=== PATIENT | female | born 1955 | race Caucasian/White ===

== ENCOUNTER 2017-08-15 12:01 | Emergency (ER) | payer OTHER, SELFPAY ==
[2017-08-15 12:02] VITALS: BP 161/92; PULSE 71; RESP 16; TEMP 36.6; O2SAT 100; BMI 26.6
--- NOTE | 2017-08-15 12:28 | EKG12_ITS ---
Test Reason : HEADACHE Blood Pressure : / mmHG Vent. Rate : 067 BPM Atrial Rate : 067 BPM P-R Int : 170 ms QRS Dur : 078 ms QT Int : 412 ms P-R-T Axes : 037 041 054 degrees QTc Int : 435 ms Normal sinus rhythm Nonspecific ST abnormality Abnormal ECG Confirmed by MARI MONSALVE, HOOD ([id number]), fan mail editor JULISSA COSME ([id number]) on 08/20/2017 2:06:21 PM Referred By: KATHY Confirmed By:HOOD GUERRA MD
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
--- NOTE | 2017-08-15 12:40 | NURSING ---
NO LW OR POA
[2017-08-15 12:54] LABS: Hematocrit 42.8 % (37-47); Hemoglobin 14.2 g/dl (12.0-15.0); Mean Corp Hgb Conc 33.2 g/gl (32-36); Mean Corpuscular Hgb 29.3 pg (27.0-32.0); Mean Corpuscular Volume 88.4 fL (81-99); Mean Platelet Vol. 9.6 fl (6.2-12.0); Platelet Count 255 K/mm3 (150-450); RBC Distribution Width CV 13.1 % (11.6-14.6); RBC Distribution Width SD 41.6 fl (35.1-43.9); Red Blood Count 4.84 M/mm3 (4.2-5.4); Scan Indicated on CBC? Y/N NO; White Blood Count 6.8 K/mm3 (4.4-11.0)
[2017-08-15] MEDS: 0.9% Normal Saline 1,000 ML 999 ML IV (12:54)
[2017-08-15] MEDS: LORazepam 2 MG/ML Syringe 1 MG IV (12:55)
[2017-08-15] MEDS: Ketorolac 30 MG/ML Syringe 15 MG IV (12:55)
[2017-08-15 13:04] LABS: Anion Gap 11 (5-15); BUN 15 mg/dL (7-18); BUN/Creat Ratio 17.2 RATIO (10-20); Calcium,Total 9.6 mg/dL (8.5-10.1); Chloride 106 mmol/L (98-107); Creatinine, Serum 0.87 mg/dL (0.55-1.02); EST Glomerular Filtration Rate 70 mL/min (>60); Est Glom Filt Rate - Afr Amer 85 mL/min (>60); Estimated Creatinine Clearance 53.71 ml/min; Glucose 107 mg/dL (74-106); Potassium 3.7 mmol/L (3.5-5.1); Sodium Level 140 mmol/L (136-145)
--- NOTE | 2017-08-15 13:28 | ED.DEP ---
ED Disposition - Plan for ED Patient: Disposition: Home or Assisted Living Chief Complaint: Headache Instructions: ED Headache Tension Referrals: Bang Sheffield MD [Primary Care Provider] -
[2017-08-15 14:02] VITALS: BP 110/72; PULSE 67; RESP 17; O2SAT 95
== END 2017-08-15 14:03 | disposition home or self-care (01) ==
PROVIDERS: Emergency Provider Emergency Medicine; Family Provider Family Medicine; PCP Family Medicine
DX: F41.1 Generalized anxiety disorder (principal); F43.0 Acute stress reaction; R51 Headache; J45.909 Unspecified asthma, uncomplicated
CPT/HCPCS: 80048; 85027; 93005; 96361; 96374; 96375; 99285; J7030; A4216

== ENCOUNTER → 2017-08-20 16:00 | Outpatient (CLI) | payer OTHER, SELFPAY ==
[2017-08-20 18:12] LABS: Anion Gap 7 (5-15); BUN 15 mg/dL (7-18); BUN/Creat Ratio 18.5 RATIO (10-20); Calcium,Total 8.8 mg/dL (8.5-10.1); Chloride 107 mmol/L (98-107); Creatinine, Serum 0.81 mg/dL (0.55-1.02); EST Glomerular Filtration Rate 76 mL/min (>60); Est Glom Filt Rate - Afr Amer 92 mL/min (>60); Glucose 90 mg/dL (74-106); Sodium Level 141 mmol/L (136-145)
== END ==
PROVIDERS: Family Provider Family Medicine; PCP Family Medicine; Visit Provider Family Medicine
DX: Z01.818 Encounter for other preprocedural examination (principal)
CPT/HCPCS: 36415; 80048

== ENCOUNTER → 2017-09-10 15:39 | Outpatient (CLI) | payer OTHER, SELFPAY ==
--- NOTE | 2017-09-10 15:43 | CT_ITS ---
STUDY: CTA OF THE BRAIN REASON FOR EXAM: Female, 62 years old. Headache RADIATION DOSAGE (If Supplied By Facility): CTDIvol = ( 25.37 ) mGy, DLP = ( 1107.20 ) mGycm TECHNIQUE: CT angiography was performed with a multi-detector CT scanner. Data acquisition was obtained from the skull base through the vertex following intravenous administration of 100 ml of Isovue 370. MIP images were reconstructed from the axial data set. Post-processing of the angiographic images was performed, with multiplanar reformation and 3D reconstruction. Individualized dose optimization techniques were used for this CT. COMPARISON: None. FINDINGS: The petrous carotid arteries are normal in appearance. Normal right cavernous carotid artery with a normal supraclinoid bifurcation. Normal left cavernous carotid artery with a normal supraclinoid bifurcation. Normal right A1 segment of the anterior cerebral artery. Normal left A1 segment of the anterior cerebral artery. Normal intact anterior communicating artery (ACOM). Normal bilateral A2 segments of the anterior cerebral arteries. Normal right M1 and M2 segments of the middle cerebral arteries, with a normal M1 bifurcation. Normal left M1 and M2 segments of the middle cerebral arteries, with a normal M1 bifurcation. Normal right posterior communicating artery (PCOM). Normal left posterior communicating artery (PCOM). Normal bilateral distal vertebral arteries. Normal basilar artery with a normal basilar bifurcation. The visualized bilateral superior cerebellar (SCA) arteries are within normal limits. Normal bilateral P1, P2 and visualized P3 segments of the posterior cerebral arteries. There is no demonstrated aneurysm of the w[place]ot of [place]. There is no demonstrated abnormality or enhancement of the visualized brain. CT/CTA Head W/WO Contrast IMPRESSION: Normal intracranial arteries without a demonstrated aneurysm or hemodynamically significant stenosis. Electronically Signed: Viv Moreno MD at 18:12 EDT Tel Direct: [phone], Service support ,
== END ==
PROVIDERS: Family Provider Family Medicine; PCP Family Medicine; Visit Provider Family Medicine
DX: R51 Headache (principal)
CPT/HCPCS: 70496; Q9967

== ENCOUNTER → 2018-01-24 09:15 | Outpatient (CLI) | payer OTHER, SELFPAY ==
[2018-01-24 12:34] LABS: CPK Total, Creatine Kinase 129 U/L (26-192); Cholesterol 197 mg/dL (200); High Density Lipoprotein 87 mg/dL; Triglycerides 143 mg/dL; Very Low Density Lipoprotein 29 mg/dL (5-40)
== END ==
PROVIDERS: Family Provider Family Medicine; PCP Family Medicine; Visit Provider Family Medicine
DX: E78.5 Hyperlipidemia, unspecified (principal)
CPT/HCPCS: 36415; 80061; 82550

== ENCOUNTER → 2018-04-09 09:02 | Outpatient (CLI) | payer OTHER, SELFPAY ==
[2018-04-09 10:11] LABS: BUN 20 mg/dL (7-18); Creatinine, Serum 0.93 mg/dL (0.55-1.02); EST Glomerular Filtration Rate 65 mL/min (>60); Est Glom Filt Rate - Afr Amer 78 mL/min (>60)
== END ==
PROVIDERS: Family Provider Family Medicine; PCP Family Medicine; Referring Provider Internal Medicine Gastroenterology; Visit Provider Internal Medicine Gastroenterology
DX: Z01.818 Encounter for other preprocedural examination (principal)
CPT/HCPCS: 36415; 82565; 84520

== ENCOUNTER → 2018-12-05 10:29 | Outpatient (CLI) | payer OTHER, SELFPAY ==
[2018-12-05 12:32] LABS: ALB/GLOB Ratio 1.1 RATIO (0.9-2.4); AST(SGOT) 26 U/L (15-37); Alanine Aminotransfer ALT/SGPT 35 U/L (13-56); Alkaline Phosphatase 84 U/L (45-117); Anion Gap 9 (5-15); BUN 15 mg/dL (7-18); BUN/Creat Ratio 16.9 RATIO (10-20); Calcium,Total 9.6 mg/dL (8.5-10.1); Chloride 106 mmol/L (98-107); Creatinine, Serum 0.88 mg/dL (0.55-1.02); EST Glomerular Filtration Rate 69 mL/min (>60); Est Glom Filt Rate - Afr Amer 83 mL/min (>60); Globulin 3.5 g/dL (2.2-4.2); Glucose 93 mg/dL (74-106); Potassium 4.2 mmol/L (3.5-5.1); Protein, Total 7.5 g/dL (6.4-8.2); Sodium Level 141 mmol/L (136-145); Thyroid Stim Hormone (TSH) 1.21 uIU/mL (0.358-3.74)
== END ==
PROVIDERS: Family Provider Family Medicine; PCP Family Medicine; Visit Provider Family Medicine
DX: E78.5 Hyperlipidemia, unspecified (principal)
CPT/HCPCS: 36415; 80053; 84443

== ENCOUNTER → 2020-05-09 10:52 | Outpatient (CLI) | payer OTHER, SELFPAY ==
[2019-04-02 10:23] VITALS: BMI 29.0
[2020-05-09 15:21] LABS: Absolute Lymphocyte Count 1.63 X10^3/uL (0.83-4.51); Absolute Neutrophil Count 3.3 X10^3/uL (2.0-7.7); Basophil# 0.06 X10^3/uL; Basophil% 1.1 % (0-1); Eosinophil# 0.28 X10^3/uL; Eosinophils% 4.9 % (0-5); Hemoglobin 14.3 g/dL (12.0-15.0); Lymphocyte # 1.63 X10^3/ul (4.0); Lymphocyte % 28.6 % (19-41); Mean Corp Hgb Conc 31.8 g/dL (32-36); Mean Corpuscular Hgb 29.8 pg (27.0-32.0); Mean Corpuscular Volume 93.8 fL (81-99); Mean Platelet Vol. 9.9 fl (6.2-12.0); Monocyte# 0.43 X10^3/uL; Monocyte% 7.5 % (0-10); NRBC Flagged by Analyzer 0 % (0-5); Neutrophil # 3.29 X10^3/uL (2.7-7.7); Neutrophil % 57.7 % (47-70); Platelet Count 262 K/mm3 (150-450); RBC Distribution Width SD 41.9 fl (35.1-43.9); White Blood Count 5.7 K/mm3 (4.4-11.0)
[2020-05-09 15:59] LABS: ALB/GLOB Ratio 1.3 RATIO (0.9-2.4); AST(SGOT) 29 U/L (15-37); Alanine Aminotransfer ALT/SGPT 42 U/L (13-56); Albumin, Serum 4.2 g/dL (3.2-5.0); Alkaline Phosphatase 97 U/L (45-117); Anion Gap 8 (5-15); BUN 14 mg/dL (7-18); BUN/Creat Ratio 16.7 RATIO (10-20); Calcium,Total 9.5 mg/dL (8.5-10.1); Chloride 106 mmol/L (98-107); Creatinine, Serum 0.84 mg/dL (0.55-1.02); EST Glomerular Filtration Rate 73 mL/min (>60); Est Glom Filt Rate - Afr Amer 88 mL/min (>60); Globulin 3.3 g/dL (2.2-4.2); Glucose 86 mg/dL (74-106); Potassium 4.1 mmol/L (3.5-5.1); Protein, Total 7.5 g/dL (6.4-8.2); Sodium Level 137 mmol/L (136-145); T4 Free Direct 1.22 ng/dL (0.76-1.46); Thyroid Stim Hormone (TSH) 1.41 uIU/mL (0.358-3.74)
[2020-05-09 18:30] LABS: Vitamin B12 312 pg/mL (211-911)
== END ==
PROVIDERS: PCP Family Medicine; Visit Provider Family Medicine
DX: R53.83 Other fatigue (principal); E78.5 Hyperlipidemia, unspecified; G43.909 Migraine, unspecified, not intractable, without status migrainosus
CPT/HCPCS: 36415; 80053; 82607; 84439; 84443; 85025

== ENCOUNTER → 2020-06-02 10:48 | Outpatient (CLI) | payer OTHER, SELFPAY ==
[2020-05-26 08:18] VITALS: BMI 29.0
== END ==
PROVIDERS: PCP Family Medicine; Referring Provider Family Medicine; Visit Provider Family Medicine
DX: Z03.818 Encounter for observation for suspected exposure to other biological agents ruled out (principal)
CPT/HCPCS: 87635; C9803; U0003

== ENCOUNTER → 2020-10-03 10:32 | Outpatient (CLI) | payer OTHER, SELFPAY ==
[2020-05-26 08:18] VITALS: BMI 29.0
--- NOTE | 2020-10-03 10:35 | RAD_ITS ---
STUDY: X-RAY - PELVIS AND BILATERAL HIPS REASON FOR EXAM: Female, 65 years old. Chronic pain. TECHNIQUE: AP view of the pelvis.? 2 views of the right hip, and 2 views of the left hip were obtained. COMPARISON: Left hip images dated 01/07/2015. FINDINGS: There is a non-specific bowel gas pattern. Ossification adjacent to the greater trochanter of the right hip. Phleboliths. Mild generalized osteopenia. Normal bilateral iliac wings, sacroiliac joints and visualized sacrum. Normal bilateral superior and inferior pubic rami. Normal pubic symphysis. Normal bilateral ischial tuberosities. Mild arthrosis of both hips. RAD/Hips B/L min 2 views w/ Pelvis IMPRESSION: Osteopenia with mild arthrosis of both hips. Electronically Signed: Jason Garcia MD at 11:59 EDT , Service support ,
[2020-10-03 12:45] LABS: Absolute Lymphocyte Count 1.68 X10^3/uL (0.83-4.51); Absolute Neutrophil Count 3.6 X10^3/uL (2.0-7.7); Basophil# 0.06 X10^3/uL; Eosinophil# 0.36 X10^3/uL; Eosinophils% 5.8 % (0-5); Hematocrit 39.2 % (37-47); Hemoglobin 12.1 g/dL (12.0-15.0); Lymphocyte # 1.68 X10^3/ul (0.83-4.51); Lymphocyte % 27.2 % (19-41); Mean Corp Hgb Conc 30.9 g/dL (32-36); Mean Corpuscular Hgb 27.4 pg (27.0-32.0); Mean Corpuscular Volume 88.7 fL (81-99); Mean Platelet Vol. 10.2 fl (6.2-12.0); Monocyte% 8.1 % (0-10); NRBC Flagged by Analyzer 0 % (0-5); Neutrophil # 3.55 X10^3/uL (2.7-7.7); Neutrophil % 57.6 % (47-70); Platelet Count 344 K/mm3 (150-450); RBC Distribution Width CV 12.9 % (11.6-14.6); RBC Distribution Width SD 41.8 fl (35.1-43.9); Red Blood Count 4.42 M/mm3 (4.2-5.4); White Blood Count 6.2 K/mm3 (4.4-11.0)
[2020-10-03 12:59] LABS: Vitamin B12 1587 pg/mL (211-911)
[2020-10-03 13:11] LABS: ALB/GLOB Ratio 1.1 RATIO (0.9-2.4); AST(SGOT) 16 U/L (15-37); Alanine Aminotransfer ALT/SGPT 26 U/L (13-56); Albumin, Serum 3.9 g/dL (3.2-5.0); Alkaline Phosphatase 92 U/L (45-117); Anion Gap 6 (5-15); BUN 16 mg/dL (7-18); BUN/Creat Ratio 20.5 RATIO (10-20); Calcium,Total 9.2 mg/dL (8.5-10.1); Chloride 105 mmol/L (98-107); Creatinine, Serum 0.78 mg/dL (0.55-1.02); EST Glomerular Filtration Rate 79 mL/min (>60); Est Glom Filt Rate - Afr Amer 96 mL/min (>60); Globulin 3.4 g/dL (2.2-4.2); Glucose 82 mg/dL (74-106); Protein, Total 7.3 g/dL (6.4-8.2); Sodium Level 138 mmol/L (136-145); Thyroid Stim Hormone (TSH) 1.63 uIU/mL (0.358-3.74)
== END ==
PROVIDERS: PCP Family Medicine; Referring Provider Family Medicine; Visit Provider Family Medicine
DX: M16.0 Bilateral primary osteoarthritis of hip (principal); E78.5 Hyperlipidemia, unspecified; E53.8 Deficiency of other specified B group vitamins; R53.83 Other fatigue
CPT/HCPCS: 36415; 73521; 80053; 82607; 84443; 85025

== ENCOUNTER → 2022-07-19 | Outpatient (CLI) | payer MEDICARE, SELFPAY ==
[2022-07-19 10:51] LABS: Absolute Lymphocyte Count 1.49 X10^3/uL (0.83-4.51); Basophil# 0.06 X10^3/uL; Basophil% 1.4 % (0-1); Eosinophil# 0.32 X10^3/uL; Eosinophils% 7.5 % (0-5); Hematocrit 42.9 % (37-47); Hemoglobin 14.2 g/dL (12.0-15.0); Lymphocyte # 1.49 X10^3/ul (0.83-4.51); Mean Corp Hgb Conc 33.1 g/dL (32-36); Mean Corpuscular Hgb 29.3 pg (27.0-32.0); Mean Corpuscular Volume 88.6 fL (81-99); Mean Platelet Vol. 9.5 fl (6.2-12.0); Monocyte# 0.38 X10^3/uL; Monocyte% 8.9 % (0-10); NRBC Flagged by Analyzer 0 % (0-5); Platelet Count 293 K/mm3 (150-450); RBC Distribution Width CV 12.6 % (11.6-14.6); RBC Distribution Width SD 40.9 fl (35.1-43.9); Red Blood Count 4.84 M/mm3 (4.2-5.4); White Blood Count 4.3 K/mm3 (4.4-11.0)
[2022-07-19 11:27] LABS: ALB/GLOB Ratio 1.3 RATIO (0.9-2.4); AST(SGOT) 20 U/L (15-37); Alanine Aminotransfer ALT/SGPT 25 U/L (13-56); Alkaline Phosphatase 74 U/L (45-117); Anion Gap 8 (5-15); BUN 13 mg/dL (7-18); Calcium,Total 9.6 mg/dL (8.5-10.1); Chloride 107 mmol/L (98-107); Creatinine, Serum 0.87 mg/dL (0.55-1.02); EST Glomerular Filtration Rate 69 mL/min (>60); Est Glom Filt Rate - Afr Amer 84 mL/min (>60); Globulin 3.1 g/dL (2.2-4.2); Glucose 79 mg/dL (74-106); Potassium 4.1 mmol/L (3.5-5.1); Protein, Total 7.1 g/dL (6.4-8.2); Sodium Level 142 mmol/L (136-145); T4 Free Direct 1.06 ng/dL (0.76-1.46); Thyroid Stim Hormone (TSH) 1.44 uIU/mL (0.358-3.74)
[2022-07-20 15:08] LABS: Endomysial Antibody IgA Negative (Negative)
[2022-07-20 17:08] LABS: Deamidated Gliadin IgA 15 units (0-19); Deamidated Gliadin IgG 3 units (0-19); Immunoglobulin A 132 mg/dL (87-352); t-Transglutaminase IgA <2 U/mL (0-3)
[2022-07-20 18:53] LABS: Calprotectin, Stool <16 ug/g (0-120)
== END | disposition home or self-care (01) ==
PROVIDERS: Visit Provider Nurse Practitioner Adult Health
DX: R19.7 Diarrhea, unspecified (principal)
CPT/HCPCS: 36415; 80053; 82274; 82784; 83516; 83630; 83735; 83993; 84439; 84443; 85025; 86255; 87177; 87209; 87493

== ENCOUNTER → 2022-10-03 | Outpatient (CLI) | payer MEDICARE, SELFPAY ==
--- NOTE | 2022-10-03 09:34 | US_ITS ---
PROCEDURES: ULTRASOUND AORTA REASON FOR EXAM: Female, 67 years old. Multiple family members history of AAA. TECHNIQUE: Ultrasound evaluation of the aorta was performed with real-time and static cabrera-scale imaging. COMPARISON: None. FINDINGS: There is no elongation or tortuosity of the abdominal aorta. Aorta measures: Proximal 2.1 cm. Middle 1.8 cm. Distal 1.6 cm. Aorta measure transversely: Proximal 2.1 cm. Middle 1.7 cm. Distal 1.6 cm. Right iliac artery measures: 0.9 cm. Right iliac artery measure transversely: 1.3 cm. Left iliac artery measures: 0.8 cm. Left iliac artery measure transversely: 1.2 cm. There is no demonstrated aneurysm.. US/US ABD AORTA SCREEN/AAA IMPRESSION: Normal abdominal aorta. Electronically Signed: Bruce Dee MD at 15:45 EDT ,
== END | disposition home or self-care (01) ==
LOC: US 09:33
PROVIDERS: PCP Internal Medicine; Referring Provider Internal Medicine; Visit Provider Internal Medicine
DX: Z00.00 Encounter for general adult medical examination without abnormal findings (principal); Z82.49 Family history of ischemic heart disease and other diseases of the circulatory system
CPT/HCPCS: 76706

== ENCOUNTER → 2022-10-10 | Outpatient (CLI) | payer MEDICARE, SELFPAY ==
--- NOTE | 2022-10-10 09:44 | ECHOD_ITS ---
Reason For Study: SOB Procedure This was a 2D Doppler, Color Flow transthoracic echocardiogram. Exam performed in department. Left Ventricle Normal LV size. Left ventricular systolic function is normal. The estimated ejection fraction is 60 %. Stage 1 diastolic dysfunction. No regional wall motion abnormalities noted. Right Ventricle Normal RV size. Normal systolic function. Atria Normal left atrium. Normal right atrium. Mitral Valve There is mild to moderate mitral annular calcification. Tricuspid Valve Normal tricuspid valve. Mild tricuspid valve insufficiency. Pulmonary artery systolic pressure is 30 mmHg. Aortic Valve Trisinus/trileaflet aortic valve. Mild diffuse aortic valve thickening. Pulmonic Valve Normal pulmonic valve. Great Vessels Normal aortic root. The pulmonary artery is normal size. Normal inferior vena cava. Pericardium/Pleural No pericardial effusion. MMode/2D Measurements & Calculations LVIDd: 3.7 cm IVSd: 0.92 cm Ao root diam: 3.0 cm LVIDs: 2.3 cm LVPWd: 0.90 cm RVDd: 2.6 cm FS: 37.1 % LAV(MOD-bp): 22.5 ml LVAd ap4: 16.2 cm2 SV(MOD-sp4): 23.3 ml LAV(MOD-bp) Indexed: 14.5 ml/m2 LVLd ap4: 6.5 cm LAV(MOD-sp2): 24.9 ml EDV(MOD-sp4): 34.5 ml LAV(MOD-sp4): 19.3 ml EDV(sp4-el): 34.4 ml LVAs ap4: 8.2 cm2 LVLs ap4: 5.2 cm ESV(MOD-sp4): 11.2 ml ESV(sp4-el): 11.1 ml EF(MOD-sp4): 67.6 % EF(sp4-el): 67.7 % SV(sp4-el): 23.3 ml LA A4 area: 9.6 cm2 LA dimension(2D): 2.7 cm RA A4 area: 6.8 cm2 Time Measurements MV dec time: 0.28 sec Doppler Measurements & Calculations MV E max hector: 75.4 cm/sec Lat Peak E' Hector: 8.9 cm/sec Med Peak E' Hector: 5.6 cm/sec MV A max hector: 128.2 cm/sec E/E' lat: 8.5 E/E' med: 13.4 MV E/A: 0.59 MV V2 max: 123.6 cm/sec Ao V2 max: 118.2 cm/sec MV max P.1 mmHg MV dec slope: 264.6 cm/sec2 Ao max P.6 mmHg MV V2 mean: 68.4 cm/sec Ao V2 mean: 89.1 cm/sec MV mean P.1 mmHg Ao mean P.4 mmHg MV V2 VTI: 26.8 cm Ao V2 VTI: 21.4 cm LV V1 max: 81.4 cm/sec PA V2 max: 79.6 cm/sec TR max hector: 263.2 cm/sec LV V1 max P.6 mmHg TR max P.7 mmHg ECHO/Echo Complete Interpretation Summary Normal LV size. Left ventricular systolic function is normal. The estimated ejection fraction is 60 %. Mild diffuse aortic valve thickening. There is mild to moderate mitral annular calcification. Stage 1 diastolic dysfunction. Ordering Physician: Diamond Xiong Referring Physician: Diamond Xiong Performed By: Inocencia Lau, GARRETT, RVT
== END | disposition home or self-care (01) ==
LOC: CVS 09:42
PROVIDERS: PCP Internal Medicine; Referring Provider Internal Medicine; Visit Provider Internal Medicine
DX: R06.02 Shortness of breath (principal)
CPT/HCPCS: 93306

== ENCOUNTER → 2022-12-05 | Outpatient (CLI) | payer MEDICARE, SELFPAY ==
[2022-12-05 15:31] LABS: Cholesterol 266 mg/dL (200); High Density Lipoprotein 90 mg/dL; Triglycerides 160 mg/dL; Very Low Density Lipoprotein 32 mg/dL (5-40)
== END | disposition home or self-care (01) ==
LOC: LAB 13:47
PROVIDERS: PCP Internal Medicine; Referring Provider Internal Medicine Cardiovascular Disease; Visit Provider Internal Medicine Cardiovascular Disease
DX: E78.5 Hyperlipidemia, unspecified (principal)
CPT/HCPCS: 36415; 80061

== ENCOUNTER → 2022-12-19 | Outpatient (CLI) | payer MEDICARE, SELFPAY ==
--- NOTE | 2022-12-19 07:38 | CT_ITS ---
STUDY: CTA CHEST REASON FOR EXAM: Female, 67 years old. Family history of thoracic aortic aneurysm. RADIATION DOSAGE (If Supplied By Facility): CTDIvol = ( 6.34 ) mGy, DLP = ( 197.16 ) mGycm TECHNIQUE: The examination was performed with the intravenous administration of IV 100mL Isovue-370. Post-processing of the angiographic images was performed, with multiplanar reformation and 3D reconstruction. Individualized dose optimization techniques were used for this CT. COMPARISON: None. FINDINGS: Normal enhancement of the main pulmonary artery and right and left pulmonary arteries. Normal enhancement of the bilateral peripheral pulmonary arteries. There is no demonstrated pulmonary embolism. There is atherosclerotic calcification of the aortic arch with tortuosity. There is no demonstrated aortic dissection. There are calcifications of the coronary arteries. Normal mediastinum. Normal hilar regions. Normal visualized trachea and bronchi. 5 mm calcified granuloma in the left upper lobe. Normal pulmonary parenchyma. Normal pleura. Normal chest wall structures. There are degenerative changes of thoracic spine. Normal visualized upper abdomen. CT/CTA Chest W/WO Contrast IMPRESSION: No evidence of a thoracic aortic aneurysm. Calcified granuloma in the left upper lobe. Electronically Signed: Bruce Dee MD at 13:39 EDT ,
[2022-12-19 08:03] LABS: CREATININE FINGERSTICK < 0.9 mg/dL (0.55-1.02); EGFR FINGERSTICK > 60.0000 mL/min (>60)
== END | disposition home or self-care (01) ==
PROVIDERS: PCP Internal Medicine; Referring Provider Internal Medicine Cardiovascular Disease; Visit Provider Internal Medicine Cardiovascular Disease
DX: Z13.6 Encounter for screening for cardiovascular disorders (principal); Z82.49 Family history of ischemic heart disease and other diseases of the circulatory system
CPT/HCPCS: 71275; Q9967

== ENCOUNTER → 2023-04-03 | Outpatient (CLI) | payer MEDICARE, SELFPAY ==
[2023-04-03 09:19] LABS: AST(SGOT) 18 U/L (15-37); Alanine Aminotransfer ALT/SGPT 23 U/L (13-56); Albumin, Serum 3.6 g/dL (3.2-5.0); Alkaline Phosphatase 93 U/L (45-117); Bilirubin, Direct 0.12 mg/dL (0.00-0.30); Cholesterol 193 mg/dL (200); Globulin 3.2 g/dL (2.2-4.2); High Density Lipoprotein 84 mg/dL; Protein, Total 6.8 g/dL (6.4-8.2); Triglycerides 81 mg/dL; Very Low Density Lipoprotein 16 mg/dL (5-40)
== END | disposition home or self-care (01) ==
LOC: LAB 08:30
PROVIDERS: PCP Internal Medicine; Referring Provider Nurse Practitioner Gerontology; Visit Provider Nurse Practitioner Gerontology
DX: E78.5 Hyperlipidemia, unspecified (principal)
CPT/HCPCS: 36415; 80061; 80076

== ENCOUNTER → 2023-08-08 | Outpatient (CLI) | payer MEDICARE, SELFPAY ==
[2023-08-08 09:50] LABS: Absolute Lymphocyte Count 1.45 X10^3/uL (0.83-4.51); Absolute Neutrophil Count 2.9 X10^3/uL (2.0-7.7); Basophil# 0.05 X10^3/uL; Basophil% 0.9 % (0-1); Eosinophil# 0.54 X10^3/uL; Eosinophils% 9.4 % (0-5); Hematocrit 39.7 % (37-47); Hemoglobin 11.6 g/dL (12.0-15.0); Lymphocyte # 1.45 X10^3/ul (0.83-4.51); Lymphocyte % 25.3 % (19-41); Mean Corp Hgb Conc 29.2 g/dL (32-36); Mean Corpuscular Hgb 23.5 pg (27.0-32.0); Mean Corpuscular Volume 80.4 fL (81-99); Mean Platelet Vol. 9.8 fl (6.2-12.0); Monocyte# 0.82 X10^3/uL; Monocyte% 14.3 % (0-10); NRBC Flagged by Analyzer 0 % (0-5); Neutrophil # 2.87 X10^3/uL (2.7-7.7); Neutrophil % 49.9 % (47-70); Platelet Count 290 K/mm3 (150-450); RBC Distribution Width CV 16.3 % (11.6-14.6); RBC Distribution Width SD 46.4 fl (35.1-43.9); Red Blood Count 4.94 M/mm3 (4.2-5.4); White Blood Count 5.7 K/mm3 (4.4-11.0)
[2023-08-08 10:18] LABS: Vitamin D,25 Hydroxy 94.3 ng/mL
[2023-08-08 10:30] LABS: AST(SGOT) 19 U/L (15-37); Alanine Aminotransfer ALT/SGPT 20 U/L (13-56); Albumin, Serum 3.7 g/dL (3.2-5.0); Alkaline Phosphatase 98 U/L (45-117); Anion Gap 5 (5-15); BUN 13 mg/dL (7-18); BUN/Creat Ratio 17.6 RATIO (10-20); Calcium,Total 9.8 mg/dL (8.5-10.1); Chloride 111 mmol/L (98-107); Cholesterol 205 mg/dL (200); Creatinine, Serum 0.74 mg/dL (0.55-1.02); EST Glomerular Filtration Rate 83 mL/min (>60); Est Glom Filt Rate - Afr Amer 101 mL/min (>60); Free T3 2.7 pg/mL (2.18-3.98); Globulin 3.6 g/dL (2.2-4.2); Glucose 86 mg/dL (74-106); High Density Lipoprotein 100 mg/dL; Magnesium 2.2 mg/dL (1.6-2.6); Potassium 3.6 mmol/L (3.5-5.1); Protein, Total 7.3 g/dL (6.4-8.2); Sodium Level 141 mmol/L (136-145); T4 Free Direct 1.01 ng/dL (0.76-1.46); Thyroid Stim Hormone (TSH) 2.26 uIU/mL (0.358-3.74); Triglycerides 82 mg/dL; Very Low Density Lipoprotein 16 mg/dL (5-40)
[2023-08-10 06:10] LABS: HEPATITIS B SURFACE AG Negative (Negative); Hepatitis A AB, Total Negative (Negative); Hepatitis B Core Ab Total Negative (Negative)
== END | disposition home or self-care (01) ==
LOC: LAB 08:31
PROVIDERS: PCP Internal Medicine; Referring Provider Internal Medicine; Visit Provider Internal Medicine
DX: E78.5 Hyperlipidemia, unspecified (principal); G43.909 Migraine, unspecified, not intractable, without status migrainosus; J45.909 Unspecified asthma, uncomplicated; E55.9 Vitamin D deficiency, unspecified; R21 Rash and other nonspecific skin eruption; Z13.220 Encounter for screening for lipoid disorders; Z82.49 Family history of ischemic heart disease and other diseases of the circulatory system
CPT/HCPCS: 36415; 80053; 80061; 82306; 83735; 84439; 84443; 84481; 85025; 86704; 86705; 86706; 86707; 86708; 86709; 87340; 87350

== ENCOUNTER → 2023-08-13 | Outpatient (CLI) | payer MEDICARE, SELFPAY ==
[2023-08-13 09:27] LABS: Platelet Count 326 K/mm3 (150-450); RET-HE 24.1 pg (30-35); Reticulocyte Count 0.71 % (0.5-1.5)
[2023-08-13 09:53] LABS: Vitamin B12 389 pg/mL (211-911)
[2023-08-13 11:16] LABS: Iron 33 ug/dL (50-170); Iron Binding Capacity,Total 478 ug/dL (250-450); PERCENT IRON SATURATION 6.9 % (15.0-55.0)
== END | disposition home or self-care (01) ==
LOC: LAB 08:33
PROVIDERS: PCP Internal Medicine; Referring Provider Internal Medicine; Visit Provider Internal Medicine
DX: D64.9 Anemia, unspecified (principal); E53.8 Deficiency of other specified B group vitamins
CPT/HCPCS: 36415; 82607; 82746; 83540; 83550; 85045

== ENCOUNTER → 2023-08-14 | Outpatient (CLI) | payer MEDICARE, SELFPAY | END | disposition home or self-care (01) | LOC: LABSPEC 12:45 | PROVIDERS: PCP Internal Medicine; Visit Provider Internal Medicine | DX: D64.9 Anemia, unspecified (principal) | CPT/HCPCS: 82274 ==

== ENCOUNTER → 2024-04-29 | Outpatient (CLI) | payer MEDICARE, SELFPAY ==
[2024-04-29 07:37] LABS: Anion Gap 3 (5-15); BUN 15 mg/dL (7-18); BUN/Creat Ratio 19.3 RATIO (10-20); Calcium,Total 9.6 mg/dL (8.5-10.1); Chloride 108 mmol/L (98-107); Creatinine, Serum 0.78 mg/dL (0.55-1.02); EST Glomerular Filtration Rate 78 mL/min (>60); Est Glom Filt Rate - Afr Amer 95 mL/min (>60); Glucose 86 mg/dL (74-106); Potassium 3.9 mmol/L (3.5-5.1); Sodium Level 141 mmol/L (136-145)
== END | disposition home or self-care (01) ==
LOC: LAB 06:52
PROVIDERS: PCP Internal Medicine; Referring Provider Internal Medicine Gastroenterology; Visit Provider Internal Medicine Gastroenterology
DX: Z01.818 Encounter for other preprocedural examination (principal)
CPT/HCPCS: 36415; 80048

== ENCOUNTER → 2024-08-27 | Outpatient (CLI) | payer MEDICARE, SELFPAY ==
[2024-08-27 08:51] LABS: Absolute Lymphocyte Count 1.55 X10^3/uL (0.83-4.51); Absolute Neutrophil Count 2.1 X10^3/uL (2.0-7.7); Basophil# 0.08 X10^3/uL; Basophil% 1.7 % (0-1); Eosinophil# 0.41 X10^3/uL; Eosinophils% 8.9 % (0-5); Hematocrit 41.4 % (37-47); Hemoglobin 13.5 g/dL (12.0-15.0); Lymphocyte # 1.55 X10^3/ul (0.83-4.51); Lymphocyte % 33.5 % (19-41); Mean Corp Hgb Conc 32.6 g/dL (32-36); Mean Corpuscular Hgb 30.1 pg (27.0-32.0); Mean Corpuscular Volume 92.4 fL (81-99); Mean Platelet Vol. 9.9 fl (6.2-12.0); Monocyte# 0.44 X10^3/uL; Monocyte% 9.5 % (0-10); NRBC Flagged by Analyzer 0 % (0-5); Neutrophil # 2.14 X10^3/uL (2.7-7.7); Neutrophil % 46.2 % (47-70); Platelet Count 272 K/mm3 (150-450); RBC Distribution Width CV 11.9 % (11.6-14.6); RBC Distribution Width SD 40.8 fl (35.1-43.9); Red Blood Count 4.48 M/mm3 (4.2-5.4); White Blood Count 4.6 K/mm3 (4.4-11.0)
[2024-08-27 09:47] LABS: Cholesterol 220 mg/dL (<=200); High Density Lipoprotein 92 mg/dL; Low Density Lipoprotein Calc. 113 mg/dL; Triglycerides 72 mg/dL; Very Low Density Lipoprotein 14 mg/dL (5-40); cholesterol:hdl ratio screen 2.39
[2024-08-27 10:33] LABS: ALB/GLOB Ratio 1.8 RATIO (0.9-2.4); AST(SGOT) 26 U/L (<=31); Alanine Aminotransfer ALT/SGPT 15 U/L (<=34); Albumin, Serum 4.3 g/dL (3.4-4.8); Alkaline Phosphatase 90 U/L (35-104); Anion Gap 12 (5-15); BUN 16 mg/dL (4-19); BUN/Creat Ratio 20.6 RATIO (10-20); Calcium,Total 9.7 mg/dL (7.6-11.0); Carbon Dioxide 24.1 mmol/L (21.0-32.0); Chloride 106 mmol/L (98-108); Creatinine, Serum 0.76 mg/dL (0.70-1.20); EST Glomerular Filtration Rate 86 (>60); Globulin 2.3 g/dL (2.2-4.2); Glucose 82 mg/dL (70-99); Iron 86 ug/dL (50-170); Iron Binding Capacity,Total 402 ug/dL (250-450); Iron Binding Capacity,Unsat 316 ug/dL (228-428); Potassium 4.2 mmol/L (3.3-5.1); Protein, Total 6.6 g/dL (5.9-8.4); Sodium Level 141 mmol/L (133-145)
[2024-08-27 10:38] LABS: Vitamin D,25 Hydroxy 87.8 ng/mL (30-100)
== END | disposition home or self-care (01) ==
LOC: LAB 07:49
PROVIDERS: PCP Internal Medicine; Referring Provider Internal Medicine; Visit Provider Internal Medicine
DX: N18.4 Chronic kidney disease, stage 4 (severe) (principal); E55.9 Vitamin D deficiency, unspecified; N25.81 Secondary hyperparathyroidism of renal origin
CPT/HCPCS: 36415; 80053; 80061; 82306; 83540; 83550; 84443; 85025

== ENCOUNTER 2024-09-29 12:00 | Outpatient (RCR) | payer MEDICARE, SELFPAY ==
--- NOTE | 2024-09-02 13:32 | HP.PTEVAL ---
Patient's Visit Information Visit Information Visit Information: WILLY LY is a 69 year old F referred to Physical Therapy by Dr. Diamond Xiong MD with a diagnosis of R shoulder pain/bicipital tendonitis. Date of Evaluation: 09/02/24 Physical Therapist: ALEAH Robin Visit Plan Frequency: 2x /Week Duration: 2 Months Plan: Probable impingement with bicep involvement 2X/ week for 8 weeks for postural and scapular exercises, scapular retraction exercises, Slow to progress bicep exercises, RC strength with HEP HEP: supine wand flexion, scapular retraction, And green band mid rows Subjective Subjective: Pt reports that her Dr thinks that she tore the long head of bicep. September 09 of last year she put a new toilet on and she was using a screwdriver and felt her bicep pop and she has been dealing with it for that long. She went to the Chiropractor in Mar 2024. She knows that her bicep pain is still there and she did not baby it. When she uses it, it hurts. She does not remember any black and blue area. If she she holds something out in front of her and lifts up she has pain or if she uses her arm to wrap around something it hurts. Dr pushed in some areas along the bicep and it did hurt. If she keeps her arm close to her she can lift better. She struggles with open jars. She is R handed. She is retired. She does office work one day a week. If she rolls over on the R side it might wake her up. She can not reach for things on her nightstand on the R side of her bed. Picking up her Yeti with water in it is hard. Pain R shoulder pain: Pain Intensity (Out of 10): 0 Comment: with movement 5/10 R elbow pain: Pain Intensity (Out of 10): 0 Comment: with movement 5/10 Objective Objective: R handed R community health consultant 35# and L 45# Shoulder AROM: R shoulder flex 130 and L 149 R shoulder ABD 100 and L 168 R shoulder ER 35 and L 62 R shoulder IR L4 and L T6 UE MMT R shoulder flexion 4.1 and L 6 R shoulder ABD 2.9 and L 6.1 R shoulder ER 4.6 and L 5.9 R shoulder IR 3.8 and L 5.7 palpation: tender under R acromion and bicep groove and at bicep insertion Posture: R slight scapular winging and rounded shoulders and flexed head. + impingement sign for pain on the R. Increase pain with B shoulder wand flexion at approx 120 degrees on the R Balance/Special Test Scores Quick DASH Score: 31.8175 Goals Goal 1:: I HEP Goal Time Frame: 6-8 Weeks Goal 2:: Increase pain free AROM of the R shoulder (at the time of the eval: Shoulder AROM: R shoulder flex 130 and L 149 R shoulder ABD 100 and L 168 R shoulder ER 35 and L 62 R shoulder IR L4 and L T6) Goal Time Frame: 6-8 Weeks Goal 3:: Increase R shoulder strength (at the time of the eval: UE MMT R shoulder flexion 4.1 and L 6 R shoulder ABD 2.9 and L 6.1 R shoulder ER 4.6 and L 5.9 R shoulder IR 3.8 and L 5.7). Goal Time Frame: 6-8 Weeks Goal 4:: Be able to reach her R arm out to reach her bedside table without pain Goal Time Frame: 6-8 Weeks Rehabilitation Potential Rehabilitation Potential: Good Anticipated Interventions Patient/Client Instruction: Educate patient on: Condition and Plan of Care For the Purpose of:: To decrease pain, To increase ROM, To improve nutrient delivery to tissue, To improve muscle performance and motor function, To improve ability to perform ADL's, To increase tolerance to activity/condition/position, To improve performance and independence with ADL's, To decrease level of supervision to perform tasks, To improve ability of physical actions for home/community/work/leisure, To improve health of tissue, To decrease soft tissue restriction and To increase flexibility/ROM Therapeutic Exercise to Include: Strength training, Postural training, Flexibilty training, Passive ROM, Active ROM and Scapular Strength/Stabilization For the Purpose of:: To decrease pain, To increase ROM, To improve nutrient delivery to tissue, To improve muscle performance and motor function, To improve ability to perform ADL's, To increase tolerance to activity/condition/position, To improve performance and independence with ADL's, To improve health of tissue, To decrease soft tissue restriction and To increase flexibility/ROM Manual Therapy Techniques to Include: Passive ROM and Soft tissue mobilization For the Purpose of:: To decrease pain, To increase ROM, To improve nutrient delivery to tissue, To improve muscle performance and motor function, To increase tolerance to activity/condition/position, To improve performance and independence with ADL's, To decrease level of supervision to perform tasks, To improve ability of physical actions for home/community/work/leisure, To improve health of tissue, To decrease soft tissue restriction and To increase flexibility/ROM Cryotherapy (ice pack, ice massage): Yes Thermo therapy (hot pack): Yes Ultrasound (thermal/non thermal): Yes For the Purpose of:: To decrease pain, To decrease swelling/inflammation, To increase ROM and To improve nutrient delivery to tissue Text: Thank you for the opportunity to evaluate your patient. For Medicare and Medicare HMO plans, please review the plan of care and approve it. It will need to be FAXED BACK to us at [phone] for Medicare purposes. For Medicare only, by signing this I certify the plan of care. Please let me know if there are questions or concerns regarding this plan of care. Physician Signature: Date:
--- NOTE | 2024-09-29 12:27 | HP.PTDCSUM ---
Discharge Summary D/C summary: It has been my pleasure to treat WILLY LY referred by Dr. Diamond Xiong MD, with the diagnosis of R shoulder pain/bicipital tendonitis for a total of 7 visit(s). Discharge Date: 09/29/24 Please see the following information for a summary of their discharge status. Subjective Subjective: Pt was on vacation. Pain at becep area and ache up to thes houlder. If she twists or picks up something she will get a sharp pain. Pain R shoulder pain: Pain Intensity (Out of 10): 4 R elbow pain: Pain Intensity (Out of 10): 0 Overall Improvement % Improvement: 40 Objective Objective/Function: Shoulder AROM: R shoulder flex 130 and L 149 (increase cramping on the R and has to wait for it to calm down) R shoulder ABD 100 and L 168 R shoulder ER 35 and L 62 R shoulder IR L4 and L T6) AROM remains about the same with increase pain UE MMT R shoulder flexion 4.1 and L 6 R shoulder ABD 3.6 and L 6.1 R shoulder ER 5.8 and L 5.9 R shoulder IR 4.4 and L 5.7). small strength gains made. Goals Goal 1:: I HEP Goal Progress: Goal Met Goal 2:: Increase pain free AROM of the R shoulder (at the time of the eval: Shoulder AROM: R shoulder flex 130 and L 149 R shoulder ABD 100 and L 168 R shoulder ER 35 and L 62 R shoulder IR L4 and L T6) Goal Progress: Not Progressing Goal 3:: Increase R shoulder strength (at the time of the eval: UE MMT R shoulder flexion 4.1 and L 6 R shoulder ABD 2.9 and L 6.1 R shoulder ER 4.6 and L 5.9 R shoulder IR 3.8 and L 5.7). Goal Progress: Progressing Goal 4:: Be able to reach her R arm out to reach her bedside table without pain Goal Progress: Not Progressing Plan Plan: DC PT back to Dr for reassessment. Possible MRI or ortho referral. AROM still painful and still can not reach for anything with a small amount of weight (cup, tablet etc) without increase pain D/C Information Discharge Comments: Pt to do HEP and go back to Dr for reassessment. Recommend Possible MRI or Ortho consult d/c sentence: If there are questions or concerns regarding this patient's physical therapy, please feel free to call me at [phone]. Thank you for the referral of this patient. Sincerely, Whitley Wiggins, ALEAH Balance/Gait/Functional tests Balance/Special Test Scores Quick DASH Score: 45.4525 Improvement % Improvement: 40
== END 2024-09-29 12:49 | disposition home or self-care (01) ==
LOC: PT 12:00
PROVIDERS: PCP Internal Medicine; Referring Provider Internal Medicine; Visit Provider Internal Medicine
DX: M75.21 Bicipital tendinitis, right shoulder (principal)
CPT/HCPCS: 97110; 97162; 97530

== ENCOUNTER → 2024-11-16 | Outpatient (CLI) | payer MEDICARE, SELFPAY ==
--- NOTE | 2024-11-16 16:28 | MRI_ITS ---
PROCEDURE: UPPER EXT JOINT ONLY(ROUTINE) 11/16/2024 REASON FOR EXAM: BICEPS TENDINITIS TECHNIQUE: MRI of the right shoulder without contrast.. Multiplanar and multisequence images were obtained without IV contrast administration. COMPARISON: COMPARISON : Right shoulder series 10/06/2024. FINDINGS: Moderately severe right acromioclavicular joint degenerative changes are seen, with marked associated joint narrowing and osseous reactive changes present. A small amount of fluid is seen within the subacromial/subdeltoid bursa. The right glenohumeral joint demonstrates minimal degenerative changes no joint effusion is seen no acute osseous signal changes evident. The superior glenoid labrum demonstrates partial tear. Moderate tendinosis of the supraspinatus tendon is seen no tendon retraction is noted. Mild infraspinatus tendinosis is seen. Abnormal signal of the superior portion long head of the biceps tendon is noted, with the appearance suggesting a partial tendon tear. MRI/Upper Ext Joint Only(Routine) IMPRESSION: 1. Moderately severe right acromioclavicular joint degenerative changes. 2. Moderate supraspinatus and mild infraspinatus tendinosis. 3. Abnormal signal of the superior portion of the long head of the biceps tendo n, with the appearance suggesting partial tendon tear. 4. Probable partial tear of the superior glenoid labrum Reading Location: [id number]
== END | disposition home or self-care (01) ==
LOC: MRI 16:18
PROVIDERS: PCP Internal Medicine; Referring Provider Internal Medicine; Visit Provider Internal Medicine
DX: M75.21 Bicipital tendinitis, right shoulder (principal)
CPT/HCPCS: 73221